=== PATIENT | male | born 1950 | race Two or more races ===

== ENCOUNTER 2018-05-31 14:04 | Outpatient (CLI) | payer MEDICARE, BC ==
[~2018-05-31 14:04] MED LIST: ATORVASTATIN CA20 MG ORAL; LISINOPRIL2.5 MG ORAL
--- NOTE | 2018-06-01 14:11 | GI Progress Note ---
Assessment/Plan Problems: (1) Abdominal pain ICD Codes: R10.9 - Unspecified abdominal pain SNOMED: 50257678 (2) HTN (hypertension) ICD Codes: I10 - HTN (hypertension) SNOMED: 83417510 Status: stable Status Narrative Seen with Dr. Zepeda Assessment/Plan Labs reviewed with patient, mainly unremarkable at this time Return to clinic as needed Repeat colonoscopy May 2019 The patient was seen and examined at bedside and all new and available data was reviewed in the patients chart. I agree with the above findings, impression and plan. (Patient seen earlier today. Signature stamp does not reflect patient encounter time.). - Zion Zepeda MD Subjective Subjective Denies any GI symptoms Objective temperature 97 degrees Blood pressure 136/96 Pulse 84 94% room air General Appearance: WD/WN, no apparent distress, alert Cardiovascular: normal rate Respiratory/Chest: normal breath sounds, no respiratory distress Abdominal Exam: normal bowel sounds, non tender, soft Extremities: normal range of motion, non-tender Chas Melchor NP Jun 01, 2018 14:11
== END 2018-05-31 14:34 | disposition home or self-care (01) ==
LOC: PAN 14:04
DX: R10.9 Unspecified abdominal pain (principal); I10 Essential (primary) hypertension
CPT/HCPCS: 99202